=== PATIENT | female | born 1995 | race Caucasian/White ===

== ENCOUNTER 2025-01-03 12:45 | Outpatient (CLI) | payer BC, SELFPAY ==
--- NOTE | 2025-01-03 13:00 | CRLHL7_ITS ---
For Patients: As a result of the Century Cures Act, medical imaging exams and procedure reports are released immediately into your electronic medical record. You may view this report before your referring provider. If you have questions, please contact your health care provider. CLINICAL HISTORY: bleeding COMPARISON: None. TECHNIQUE: 2D berumen-scale and color Doppler images were acquired of the pelvis using a transvaginal approach. Transvaginal imaging performed to better visualize the endometrial stripe and ovaries. FINDINGS: On transvaginal imaging, the myometrium has a normal uniform echotexture. The uterus measures 8.0 x 4.2 x 5.0 cm. The endometrial lining appears thickened and measures 12 mm in thickness. The left ovary measures 3.2 x 1.9 x 2.0 cm in size and the right ovary measures 3.4 x 1.8 x 2.1 cm. The ovaries demonstrate normal arterial and venous blood flow on color Doppler analysis. There are no suspicious fluid collections within the cul-de-sac. Hypoechoic cyst within the right ovary measures 14 x 11 x 13 millimeters. Simple right paraovarian cyst measures 12 x 11 x 12 millimeters. Additional simple right paraovarian cyst measures 17 x 11 x 8 millimeters. A 3rd right paraovarian cyst measures 10 x 6 x 9 millimeters. Simple left adnexal cyst measures 2.4 x 1.9 x 1.9 cm. IMPRESSION: No intrauterine or ectopic . Endometrium is thickened and measures 12 millimeters. Simple bilateral paraovarian cysts and benign right ovarian cyst. Dictated by Flynn Manley MD @ 01/03/2025 2:52:28 PM (Electronically Signed)
== END 2025-01-03 12:46 | disposition home or self-care (01) ==
LOC: US 12:45
PROVIDERS: Visit Provider Obstetrics & Gynecology
DX: O20.9 Hemorrhage in early pregnancy, unspecified (principal); R93.89 Abnormal findings on diagnostic imaging of other specified body structures; N83.292 Other ovarian cyst, left side; N83.291 Other ovarian cyst, right side; O20.0 Threatened abortion
CPT/HCPCS: 76817; 84702; 86850; 86900; 86901

== ENCOUNTER 2025-01-05 08:03 | Outpatient (CLI) | payer BC, SELFPAY | END 2025-01-05 08:04 | disposition home or self-care (01) | LOC: NFLDREF 01-10 18:14 | PROVIDERS: Visit Provider Advanced Practice Midwife | DX: O36.80X0 Pregnancy with inconclusive fetal viability, not applicable or unspecified (principal) | CPT/HCPCS: 84702 ==

== ENCOUNTER 2025-01-07 07:46 | Outpatient (CLI) | payer BC, SELFPAY | END 2025-01-07 07:47 | disposition home or self-care (01) | LOC: NFLDREF 01-12 11:45 | PROVIDERS: Visit Provider Advanced Practice Midwife | DX: O36.80X0 Pregnancy with inconclusive fetal viability, not applicable or unspecified (principal) | CPT/HCPCS: 84702 ==

== ENCOUNTER 2025-01-14 08:43 | Outpatient (CLI) | payer BC, SELFPAY | END 2025-01-14 08:44 | disposition home or self-care (01) | LOC: NFLDREF 01-17 07:53 | PROVIDERS: Visit Provider Advanced Practice Midwife | DX: O36.80X0 Pregnancy with inconclusive fetal viability, not applicable or unspecified (principal) | CPT/HCPCS: 84702 ==

== ENCOUNTER 2025-03-15 14:01 | Outpatient (CLI) | payer BC, SELFPAY ==
--- NOTE | 2025-03-15 14:00 | CRLHL7_ITS ---
For Patients: As a result of the Cures Act, medical imaging exams and procedure reports are released immediately into your electronic medical record. You may view this report before your referring provider. If you have questions, please contact your health care provider. OB ULTRASOUND INDICATION: Dating and viability. TECHNIQUE: Real time grayscale imaging of the fetus was performed. Transvaginal. Transvaginal imaging performed to better demonstrate the endometrium and ovaries. LMP: Unknown. JONY by LMP: N/A. (Recent miscarriage 12/2024). Previous US: No. CRL: 2.4 cm. 9 w 1 d. JONY: 10/17/2025. FHR: 177 BPM. Gestational sac: 3.4 cm. Yolk sac: 4.9 mm. Appears within normal limits. Right ovary: Within normal limits. 3.2 x 1.7 x 1.6 cm. Left ovary: Within normal limits. 2.7 x 2.3 x 3.1 cm. CL. IMPRESSION: 1. Single living intrauterine measures 9 weeks 1 day with sonographic due date 10/17/2025. 2. Corpus luteal cyst left ovary measures 2.0 x 1.6 x 1.2 cm. Simple left paraovarian cyst measures 2.3 x 2.0 x 2.1 cm. Flynn Manley M.D. Diagnostic Radiologist [email or web address] [email or web address]/inga xiong/Dictated by: Flynn Manley MD @ 03/15/2025 3:21:00 PM (Electronically Signed)
== END 2025-03-15 14:02 | disposition home or self-care (01) ==
LOC: US 14:03
PROVIDERS: PCP Family Medicine; Visit Provider Advanced Practice Midwife
DX: O34.81 Maternal care for other abnormalities of pelvic organs, first trimester (principal); N83.12 Corpus luteum cyst of left ovary; Z3A.09 9 weeks gestation of pregnancy
CPT/HCPCS: 76817

== ENCOUNTER 2025-03-15 14:48 | Outpatient (CLI) | payer BC, SELFPAY | END 2025-03-15 14:49 | disposition home or self-care (01) | PROVIDERS: PCP Family Medicine; Visit Provider Advanced Practice Midwife | DX: Z34.91 Encounter for supervision of normal pregnancy, unspecified, first trimester (principal); E07.9 Disorder of thyroid, unspecified | CPT/HCPCS: 83020; 83021; 84443; 85660; 86592; 86703; 86704; 86706; 86762; 86787; 86803; 86850; 86900; 86901; 87086; 87340; 87491; 87591 ==